=== PATIENT | male | born 1965 | race Caucasian/White ===

== ENCOUNTER → 2019-10-01 | Emergency (ER) | payer OTHER ==
[~2019-10-01] VITALS: Ht 185.4 cm; Wt 88.5 kg
== END | disposition left against medical advice (07) ==
LOC: ER 16:34
DX: Z53.20 Procedure and treatment not carried out because of patient's decision for unspecified reasons (principal)

== ENCOUNTER 2021-08-24 09:45 | Outpatient (CLI) | payer OTHER | END 2021-08-24 09:51 | disposition home or self-care (01) | LOC: PPH VACUNA 09:45 | PROVIDERS: ATTEND Emergency Medicine Pediatric Emergency Medicine | DX: Z23 Encounter for immunization (principal) ==

== ENCOUNTER 2024-10-13 08:49 | Outpatient (CLI) | payer OTHER | END 2024-10-13 08:59 | disposition home or self-care (01) | LOC: RAD 08:49 | DX: J98.4 Other disorders of lung (principal) ==

== ENCOUNTER 2025-08-12 09:59 | Outpatient (CLI) | payer OTHER | END 2025-08-12 10:09 | disposition home or self-care (01) | LOC: TOM 09:59 | DX: J45.998 Other asthma (principal) ==